=== PATIENT | female | born 1985 | race Two or more races ===

== ENCOUNTER 2018-12-06 18:12 | Emergency (ER) | payer SELFPAY ==
[~2018-12-06] VITALS: Ht 162.6 cm; Wt 72.0 kg
[2018-12-06] MEDS ORDERED: IBUPROFEN 800MG TABLET PO ONE (19:30)
[2018-12-06] MEDS ORDERED: HYDROCODONE/ACETAMINOPHEN 10/325MG TABLET PO ONE (19:30)
[2018-12-06] MEDS ORDERED: LIDOCAINE 5% PATCH TOP SCH (19:30)
[2018-12-06] MEDS ORDERED: ONDANSETRON 4MG ODT PO ONE (20:15)
[2018-12-06] MEDS ORDERED: ONDANSETRON HCL 4MG/2ML INJ IV ONE (21:00)
[2018-12-06] MEDS ORDERED: SODIUM CHLORIDE 0.9% 1,000 ML IV ONE (21:00)
[2018-12-06 23:05] VITALS: BP 109/79
== END 2018-12-06 23:14 | disposition left against medical advice (07) ==
LOC: ER 18:12
DX: M54.5 Low back pain (principal); R11.10 Vomiting, unspecified; Z88.0 Allergy status to penicillin; W01.0XXA Fall on same level from slipping, tripping and stumbling without subsequent striking against object, initial encounter; Y93.89 Activity, other specified; Y92.89 Other specified places as the place of occurrence of the external cause; Y99.8 Other external cause status
CPT/HCPCS: 70450; 72100; 73502; 73552; 81025; 96361; 96374; 99284; J2405; J7030; Q0162